=== PATIENT | male | born 1965 | race African-American/Black ===

== ENCOUNTER 2024-04-03 09:05 | Emergency (ER) | payer MEDICAID ==
[~2024-04-03] VITALS: Ht 170.2 cm; Wt 73.0 kg
[2024-04-03 09:26] VITALS: O2SAT 100
[2024-04-03] MEDS ORDERED: NAPR500T7 MT (10:43)
[2024-04-03] MEDS ORDERED: METH-653 MT (10:43)
[2024-04-03] MEDS ORDERED: ACET-2708 MT (10:43)
[2024-04-03] MEDS ORDERED: LIDO700A15 TP (10:43)
[2024-04-03] MEDS: KETOROLAC 30MG/ML VIAL IM ONE (10:45)
[2024-04-03] MEDS: ACETAMINOPHEN 500MG TABLET PO ONE (10:45)
[2024-04-03 11:07] VITALS: BP 147/89; PULSE 85; RESP 18; TEMP 98.4
== END 2024-04-03 11:43 | disposition home or self-care (01) ==
LOC: ER 09:20
DX: G89.29 Other chronic pain (principal); M54.50 Low back pain, unspecified; Z98.890 Other specified postprocedural states; Z88.8 Allergy status to other drugs, medicaments and biological substances
CPT/HCPCS: 99283; 96372; J1885